=== PATIENT | female | born 1955 | race Caucasian/White ===

== ENCOUNTER → 2022-05-21 13:45 | Outpatient (BNVA) | payer MEDICARE, SELFPAY | PROVIDERS: Visit Provider Family Medicine | DX: M16.11 Unilateral primary osteoarthritis, right hip (principal); M47.896 Other spondylosis, lumbar region; M25.551 Pain in right hip | CPT/HCPCS: 73502 ==

== ENCOUNTER 2022-05-21 16:00 | Outpatient (CLI) | payer MEDICARE, SELFPAY ==
--- NOTE | 2022-05-21 16:23 | XR_ITS ---
WS: [id number] XR lumbar spine 2-3V* [id number] REASON FOR EXAM: M25.551 - Pain in right hip FINDINGS: Normal lumbar curvature Mild concave compression deformities throughout the lumbar spine without focal lesion. Moderate narrowing of the L5-S1 disc space with anterior osteophytic spurring. 5 mm of anterolisthesi s of L4 on L5. No spondylolysis identified. Moderate degenerative changes in the facet joints L4-S1. XR/XR lumbar spine 2-3V* [id number] IMPRESSION: Degenerative spondylosis lumbar spine as above.
== END 2022-05-21 16:01 | disposition home or self-care (01) ==
LOC: RAD 16:06
PROVIDERS: Visit Provider Family Medicine
DX: M25.551 Pain in right hip (principal); M47.816 Spondylosis without myelopathy or radiculopathy, lumbar region; M16.11 Unilateral primary osteoarthritis, right hip; M47.896 Other spondylosis, lumbar region
CPT/HCPCS: 72100; 73502

== ENCOUNTER 2022-05-30 06:00 | Outpatient (RCR) | payer MEDICARE, SELFPAY | END 2022-06-24 23:59 | disposition home or self-care (01) | LOC: GPT 06:00 | PROVIDERS: Referring Provider Family Medicine; Visit Provider Family Medicine | DX: M43.16 Spondylolisthesis, lumbar region (principal); M47.816 Spondylosis without myelopathy or radiculopathy, lumbar region | CPT/HCPCS: 97110; 97112; 97140; 97162 ==

== ENCOUNTER 2022-06-25 06:00 | Outpatient (RCR) | payer MEDICARE, SELFPAY | END 2022-07-18 23:59 | disposition home or self-care (01) | LOC: GPT 06:00 | PROVIDERS: Referring Provider Family Medicine; Visit Provider Family Medicine | DX: M43.16 Spondylolisthesis, lumbar region (principal); M47.816 Spondylosis without myelopathy or radiculopathy, lumbar region | CPT/HCPCS: 97110; 97140; 97535 ==